=== PATIENT | male | born 1940 | race Caucasian/White ===

== ENCOUNTER → 2020-06-06 14:48 | Outpatient (BNVA) | payer MEDICARE, OTHER, SELFPAY | PROVIDERS: PCP Internal Medicine Endocrinology, Diabetes & Metabolism; Visit Provider Urology | DX: C61 Malignant neoplasm of prostate (principal); N52.01 Erectile dysfunction due to arterial insufficiency | CPT/HCPCS: Q3014 ==

== ENCOUNTER → 2021-06-12 12:35 | Outpatient (BNVA) | payer MEDICARE, OTHER, SELFPAY | PROVIDERS: PCP Internal Medicine Endocrinology, Diabetes & Metabolism; Visit Provider Urology | DX: N52.01 Erectile dysfunction due to arterial insufficiency (principal); C61 Malignant neoplasm of prostate | CPT/HCPCS: Q3014 ==

== ENCOUNTER → 2022-01-18 09:42 | Outpatient (REF) | payer MEDICARE, OTHER, SELFPAY ==
--- NOTE | ~2022-01-18 | NM_ITS ---
EXAMINATION: NM BONE SCAN OF THE WHOLE BODY CLINICAL INFORMATION: Malignant neoplasm of prostate. COMPARISON: No existing relevant imaging study available. TECHNIQUE: Multiple gamma scintillation camera images of the whole body were performed 3.25 hours following the intravenous administration of 31 mCi Tc-99m MDP. FINDINGS: In the head, no focal abnormalities present. In the thoracic cage and upper extremities, no suspicious focal abnormalities present. Mild increased radiotracer activities around both shoulder, sternoclavicular joints, both elbow and wrist likely represent arthritic changes. In the spine, linear abnormal increased radiotracer activities are present at lower thoracic spine, specifically at T8-T11. Mild increased radiotracer activities are also noted at L4 and L5. In the pelvis, no definite focal abnormality is identified. In the lower extremities, increased radiotracer activities are noted around both knee (left greater than right), and both mid-forefoot (left greater than right), may represent degenerative and/or posttraumatic changes. No other definite bony abnormalities are noted. The urinary bladder and faint visualization of both kidneys are noted. NM/NM bone scan whole body IMPRESSION: 1. Abnormal whole body bone scan showing multifocal increased radiotracer activities involving the lower thoracic and lower lumbar spine, may represent degenerative changes with or without superimposed compression fractures of the lower thoracic spine, of indeterminate etiology. Radiographic correlation is recommended. 2. No definite focal osseous lesion within the pelvis or ribs. 3. Abnormal increased radiotracer activities around both shoulder, sternoclavicular joints, both elbow and wrist and both knees and both mid-forefoot, may represent degenerative and/or posttraumatic changes.
== END ==
LOC: HO.NUCMED 09:42
PROVIDERS: Visit Provider Urology
DX: C61 Malignant neoplasm of prostate (principal)
CPT/HCPCS: 78306; A9503

== ENCOUNTER → 2022-01-29 15:36 | Outpatient (BNVA) | payer MEDICARE, OTHER, SELFPAY | PROVIDERS: PCP Internal Medicine Endocrinology, Diabetes & Metabolism; Visit Provider Urology | DX: C61 Malignant neoplasm of prostate (principal); N52.9 Male erectile dysfunction, unspecified | CPT/HCPCS: Q3014 ==

== ENCOUNTER 2022-06-03 12:37 | Outpatient (REF) | payer MEDICARE, OTHER, SELFPAY | END 2022-06-03 12:38 | disposition home or self-care (01) | LOC: HO.LAB 12:37 | PROVIDERS: PCP Internal Medicine Endocrinology, Diabetes & Metabolism; Visit Provider Urology | DX: Z12.5 Encounter for screening for malignant neoplasm of prostate (principal); N40.1 Benign prostatic hyperplasia with lower urinary tract symptoms; N13.8 Other obstructive and reflux uropathy; C61 Malignant neoplasm of prostate | CPT/HCPCS: 36415; 84153 ==

== ENCOUNTER → 2022-06-11 13:08 | Outpatient (BNVA) | payer MEDICARE, OTHER, SELFPAY | PROVIDERS: PCP Internal Medicine; Visit Provider Urology | DX: N52.01 Erectile dysfunction due to arterial insufficiency (principal); C61 Malignant neoplasm of prostate | CPT/HCPCS: 99212 ==

== ENCOUNTER → 2022-12-18 12:23 | Outpatient (BNVA) | payer MEDICARE, OTHER, SELFPAY | PROVIDERS: PCP Internal Medicine; Visit Provider Urology | DX: C61 Malignant neoplasm of prostate (principal); N52.01 Erectile dysfunction due to arterial insufficiency | CPT/HCPCS: Q3014 ==

== ENCOUNTER 2023-06-17 13:07 | Outpatient (REF) | payer MEDICARE, OTHER, SELFPAY ==
[2023-06-17 14:27] LABS: Prostate Specific Antigen 0.42 ng/mL (<0.05-4.0)
== END 2023-06-17 13:08 | disposition home or self-care (01) ==
LOC: HO.LAB 13:07
PROVIDERS: PCP Internal Medicine; Visit Provider Urology
DX: Z12.5 Encounter for screening for malignant neoplasm of prostate (principal); C61 Malignant neoplasm of prostate
CPT/HCPCS: 36415; 84153

== ENCOUNTER 2023-06-25 09:14 | Outpatient (AMB) | payer MEDICARE, OTHER, SELFPAY ==
--- NOTE | 2023-06-25 09:22 | MHC.OFFVIS ---
Intake Intake Visit Reasons: 6m/PSA(set) Intake Note: Patient is Present for Follow Up PSA Urology Medication: None Antibiotic Allergies: None Blood Thinners:None Allergies No Known Allergies Allergy (Verified 06/25/23 09:26) HPI HPI Comments History of Present Illness Details Anna is a pleasant male. He is a patient of Dr. Ames. He is seen for the following urologic conditions - prostate cancer - erectile dysfunction PSA remaining stable Minimal issues Continue with 6 monthly review - repeat bone scan Prostate cancer: Initial therapy external beam radiation 2009 short-term hormones low-grade cancer Prostate cancer was diagnosed 2008. The Devon grade is February 2009 Gl 3+3 08/04 cores PSA 4.1. Volume 78 cc TNM Classification of Malignant Tumours (TNM) T1c. Initial therapy included 2009 , External beam radiation with short term hormonal ablation Recent labs included a PSA (prostate-specific antigen) December 2014 0.9, Jan 2016 0.4, August 2016 0.5, Mar 2017 0.45 18 .4, 18 .4, 12/09 0.5, 06/10 0.4, 12/10 0.4, 06/11 0.4, 06/12 0.6. 06/13 0.4, 12/13 0.5, 06/14 0.4 Current symptoms include none - diagnosed with mild rectal proctitis at colonoscopy - 2017 - 2017. Imaging - 08/14 prostatomegaly with marker seeds, question of lucent lesion right iliac - 01/11 bone scan with generalized degenerative changes Next f/u in 6 months Erectile dysfunction: No longer using Tri Mix He presents today for for continued evaluation and management of erectile dysfunction. Symptoms have been present for/since years ago. Procedure(s)/Diagnosis causing dysfunction include radiation therapy. Current treament includes 04/08 Penile injection Tri-mix. Treatment side effects include none. Prior therapies include oral medications - ineffective. At this time he experiences erections are partial and insufficient for vaginal penetration, ANJEL 8-11 Moderate ED. Nocturnal erections do not occur. Currently they are in a stable relationship. [facility]LY [facility] Medical History HTN (hypertension) Hyperlipidemia Diabetes mellitus, type II Erectile dysfunction Prostate cancer Surgical History History of surgery Review of Systems Const Denies chills and Denies fever(s) Card Reports no additional complaints and Denies syncope Resp Denies cough GI Denies abdominal pain and Denies heartburn Reports as per HPI and Denies change in libido Neuro Denies syncope Psych Denies change in libido Endo Denies change in libido Physical Exam Const General: cooperative, healthy appearing, comfortable and no acute distress Orientation/consciousness: patient oriented x3 HEENT Face and sinus: Yes normal facial exam Mouth: moist mucous membranes Neck Neck: Yes normal visual inspection, Yes full ROM and Yes trachea midline Chest Chest palpation & inspection: normal inspection of the chest Resp Effort & Inspection: normal respiratory effort, able to speak in complete sentences and no respiratory distress GI Inspection: Yes normal to inspection Back/Spine/Pelvis Cervical Spine: normal cervical lordosis Thoracic/Lumbar Spine: thoracic and lumbar spine normal to inspection Skin General skin exam: no rashes or lesions noted Neuro General: patient oriented x3, gait normal, tone normal and moves all extremities Extrem General: Yes normal to inspection and Yes capillary refill normal Assessment & Plan Assessment & Plan (1) Erectile dysfunction due to arterial insufficiency: Code(s): N52.01 - Erectile dysfunction due to arterial insufficiency (2) Prostate cancer: Code(s): C61 - Malignant neoplasm of prostate Plan Six month follow-up Orders: Orders Prostate Specific Antigen 6 Months C61 - Malignant neoplasm of prostate NM bone scan whole body 6 Months C61 - Malignant neoplasm of prostate Patient Instructions: Imaging studies, laboratory and physical exam results were discussed and reviewed in detail. No major barriers to patient understanding were identified. An opportunity to ask questions regarding the treatment plan was provided. All questions were answered. The patient expressed understanding and agreement with the above treatment plan. The patient is aware they should contact our office by phone for worsening of their current condition or the appearance of new urologic symptoms. Compliance is encouraged with any medications and followup testing that is ordered. It is a privilege to participate in the urologic care of your patient. If you have any questions or concerns regarding treatment for the above conditions, or other urologic issues, please do not hesitate to contact me. The office telephone contact is [phone]. This note is constructed using voice recognition software. While every effort has been made to ensure accuracy signal fitter errors may have been included. Yours sincerely, Dr Rudy Mo MD, [facility] - Urology Providers of Expert, Compassionate Care for the Genitourinary System Coding Level of Care Code Est Pt Level 3 (83760) Diagnoses Erectile dysfunction due to arterial insufficiency N52.01 Prostate cancer C61
== END 2023-06-25 09:34 | disposition home or self-care (01) ==
PROVIDERS: PCP Internal Medicine; Visit Provider Urology
DX: N52.01 Erectile dysfunction due to arterial insufficiency (principal); C61 Malignant neoplasm of prostate
CPT/HCPCS: 99213

== ENCOUNTER → 2023-06-25 09:14 | Outpatient (BNVA) | payer MEDICARE, OTHER, SELFPAY | PROVIDERS: PCP Internal Medicine; Visit Provider Urology | DX: N52.01 Erectile dysfunction due to arterial insufficiency (principal); C61 Malignant neoplasm of prostate | CPT/HCPCS: 99212 ==

== ENCOUNTER → 2023-12-11 10:44 | Outpatient (REF) | payer MEDICARE, OTHER, SELFPAY ==
--- NOTE | ~2023-12-11 | NM_ITS ---
EXAMINATION: NM BONE SCAN OF THE WHOLE BODY CLINICAL INFORMATION: Malignant neoplasm of prostate. COMPARISON: The previous bone scan dated 01/18/2022 is available for comparison. TECHNIQUE: Multiple gamma scintillation camera images of the whole body were performed 2.5 hours following the intravenous administration of 31 mCi Tc-99m MDP. FINDINGS: In the head, no significant abnormalities are present. In the thoracic cage and upper extremities, there is mildly increased activity in the right sternoclavicular joint region. A few mild periarticular foci of increased activity are present in both hands and wrists, most prominently in the radial side of the hands bilaterally. In the spine, there is moderately increased activity in a horizontally linear foci involving 4 adjacent lower thoracic vertebral bodies, probably T8-T11. Mildly increased activity inferior to these in the right sides of T11 and T12 is also noted. A mild thoracolumbar scoliosis is present with lumbar convexity to the right. There is mildly increased activity in the left side of L4 left side of L4 and the right side of L5. In the pelvis, there is a focus of mildly increased activity present in the region of the coccyx. This is best visualized on the left and right posterior oblique spot views and overlaps the inferior aspect of the bladder on the posterior whole body image. In the lower extremities, foci of mildly increased activity are present in the right patella, the left tibial tuberosity and a slightly more intense focus in the proximal left foot. Additional faint focus of increased activity is present in the proximal right foot. No other definite bony abnormalities are noted. The urinary bladder and faint visualization of both kidneys are noted. Compared to the previous bone scan dated 01/18/2022, there has not been a significant change. AL/AL bone scan whole body IMPRESSION: 1. Stable abnormalities in the lower thoracic spine at T8-T11 continue to be most likely due to degenerative disease, possibly with superimposed compression fractures. Correlation with plain radiographs, if not previously performed, is strongly recommended. Metastatic disease at these sites cannot be entirely ruled out. 2. There is a small new abnormality in the coccyx. While this could be due to a recent fracture, a metastatic focus at this site cannot be entirely ruled out. This, as well as the thoracic spine abnormalities could be further characterized with MRI, performed without and with intravenous contrast, if clinically indicated. 3. A few additional mild nonspecific abnormalities are noted as described above and these are all likely arthritic or traumatic in etiology. None of these abnormalities is strongly suspicious for metastatic disease.
== END ==
LOC: HO.NUCMED 10:44
PROVIDERS: PCP Internal Medicine; Visit Provider Urology
DX: C61 Malignant neoplasm of prostate (principal)
CPT/HCPCS: 78306; A9503

== ENCOUNTER 2023-12-15 13:18 | Outpatient (REF) | payer MEDICARE, OTHER, SELFPAY ==
[2023-12-15 14:30] LABS: Prostate Specific Antigen 0.32 ng/mL (<0.05-4.0)
== END 2023-12-15 13:19 | disposition home or self-care (01) ==
LOC: HO.LAB 13:18
PROVIDERS: PCP Internal Medicine; Visit Provider Urology
DX: C61 Malignant neoplasm of prostate (principal); Z12.5 Encounter for screening for malignant neoplasm of prostate
CPT/HCPCS: 36415; 84153

== ENCOUNTER 2023-12-23 08:28 | Outpatient (AMB) | payer MEDICARE, OTHER, SELFPAY ==
--- NOTE | 2023-12-23 08:38 | MHC.OFFVIS ---
Intake Visit Reasons: 6m/PSA/bone scan(set) Intake Note: Patient is present for 6m/psa/bone scan Urology Medication:none Antibiotic Allergy:none Blood Thinner:none Net Software Architect Required: No Allergies No Known Allergies Allergy (Verified 12/23/23 09:01) HPI Comments Details: Anna is a pleasant male. He is a patient of Dr. Ames. He is seen for the following urologic conditions - prostate cancer - erectile dysfunction Stable PSA PSA 12/14 0.3 Reports back pain. Trial Celebrex Prostate cancer: Initial therapy external beam radiation 2009 short-term hormones low-grade cancer Prostate cancer was diagnosed 2008. The Maria E grade is February 2009 Gl 3+3 08/04 cores PSA 4.1. Volume 78 cc TNM Classification of Malignant Tumours (TNM) T1c. Initial therapy included 2009 , External beam radiation with short term hormonal ablation Recent labs included a PSA (prostate-specific antigen) December 2014 0.9, Jan 2016 0.4, August 2016 0.5, Mar 2017 0.45 18 .4, 18 .4, 12/09 0.5, 06/10 0.4, 12/10 0.4, 06/11 0.4, 06/12 0.6. 06/13 0.4, 12/13 0.5, 06/14 0.4 Current symptoms include none - diagnosed with mild rectal proctitis at colonoscopy - 2017 - 2017. Imaging - 08/14 prostatomegaly with marker seeds, question of lucent lesion right iliac - 01/11 bone scan with generalized degenerative changes - 12/14 bone scan generalized degenerative changes Follow in 12 months Erectile dysfunction: No longer using Tri Mix He presents today for for continued evaluation and management of erectile dysfunction. Symptoms have been present for/since years ago. Procedure(s)/Diagnosis causing dysfunction include radiation therapy. Current treament includes 04/08 Penile injection Tri-mix. Treatment side effects include none. Prior therapies include oral medications - ineffective. At this time he experiences erections are partial and insufficient for vaginal penetration, ANJEL 8-11 Moderate ED. Nocturnal erections do not occur. Currently they are in a stable relationship. FORMERLY [facility] Medical History HTN (hypertension) Hyperlipidemia Diabetes mellitus, type II Erectile dysfunction Prostate cancer Surgical History History of surgery Review of Systems Const Denies chills and Denies fever(s) Card Reports no additional complaints and Denies syncope Resp Denies cough GI Denies abdominal pain and Denies heartburn Reports as per HPI and Denies change in libido Neuro Denies syncope Psych Denies change in libido Endo Denies change in libido Physical Exam Const General: cooperative, healthy appearing, comfortable and no acute distress Orientation/consciousness: patient oriented x3 HEENT Face and sinus: Yes normal facial exam Mouth: moist mucous membranes Neck Neck: Yes normal visual inspection, Yes full ROM and Yes trachea midline Chest Chest palpation & inspection: normal inspection of the chest Resp Effort & Inspection: normal respiratory effort, able to speak in complete sentences and no respiratory distress GI Inspection: Yes normal to inspection Back/Spine/Pelvis Cervical Spine: normal cervical lordosis Thoracic/Lumbar Spine: thoracic and lumbar spine normal to inspection Skin General skin exam: no rashes or lesions noted Neuro General: patient oriented x3, gait normal, tone normal and moves all extremities Extrem General: Yes normal to inspection and Yes capillary refill normal Assessment & Plan Assessment & Plan (1) Erectile dysfunction due to arterial insufficiency: Code(s): N52.01 - Erectile dysfunction due to arterial insufficiency Category: Medical (2) Prostate cancer: Code(s): C61 - Malignant neoplasm of prostate Category: Medical Plan Celebrex for back pain Will contact PCP of effective Twelve month follow-up PSA Orders: Orders Prostate Specific Antigen 364 Days C61 - Malignant neoplasm of prostate Medications: New celecoxib 100 mg PO BEDTIME 30 caps 0RF 30 days C61 - Malignant neoplasm of prostate, M54.40 - Lumbago with sciatica, unspecified side, G89.29 - Other chronic pain, R39.12 - Poor urinary stream Patient Instructions: Imaging studies, laboratory and physical exam results were discussed and reviewed in detail. No major barriers to patient understanding were identified. An opportunity to ask questions regarding the treatment plan was provided. All questions were answered. The patient expressed understanding and agreement with the above treatment plan. The patient is aware they should contact our office by phone for worsening of their current condition or the appearance of new urologic symptoms. Compliance is encouraged with any medications and followup testing that is ordered. It is a privilege to participate in the urologic care of your patient. If you have any questions or concerns regarding treatment for the above conditions, or other urologic issues, please do not hesitate to contact me. The office telephone contact is [phone]. This note is constructed using voice recognition software. While every effort has been made to ensure accuracy charger errors may have been included. Yours sincerely, Dr Rudy Mo MD, [facility] - Urology Providers of Expert, Compassionate Care for the Genitourinary System Coding Level of Care Code Est Pt Level 3 (21809) Diagnoses Erectile dysfunction due to arterial insufficiency N52.01 Prostate cancer C61
== END 2023-12-23 09:49 | disposition home or self-care (01) ==
PROVIDERS: PCP Internal Medicine; Visit Provider Urology
DX: N52.01 Erectile dysfunction due to arterial insufficiency (principal); C61 Malignant neoplasm of prostate
CPT/HCPCS: 99213

== ENCOUNTER → 2023-12-23 08:28 | Outpatient (BNVA) | payer MEDICARE, OTHER, SELFPAY | PROVIDERS: PCP Internal Medicine; Visit Provider Urology | DX: N52.01 Erectile dysfunction due to arterial insufficiency (principal); C61 Malignant neoplasm of prostate | CPT/HCPCS: 99212 ==

== ENCOUNTER 2024-12-08 14:28 | Outpatient (REF) | payer MEDICARE, OTHER, SELFPAY ==
[2024-12-08 15:43] LABS: Prostate Specific Antigen 0.32 ng/mL (<0.05-4.0)
--- OUTSIDE RECORDS SUMMARY | 2024-12-08 16:37 | XMS_ITS | Continuity of Care Document ---
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 Referral None recorded . Procedures None recorded . Surgeries None recorded . Imaging None recorded . Medication Orders None recorded . Patient TargetsNo targets recorded. Patient Instructions Encounter Date Encounter Id Patient Instructions Last Modified By Organization Details Last Modified Time 12/07/2024 [id number] Patient to retur n in 9 weeks for foot care to reduce risk of complications associated with type 2 diabetes mellitus with peripheral neuropathy. jerskine Not available 12/07/2024 09:07:36 Reason for Referral None Reported. Problems Name Problem SNOMED Code Status Onset Date Resolution Date Notes Provider Name and Address Organization Details Recorded Time Microalbu minuria 887662417 Active 2020 LABS 2020 ACR 43.9 Shila encarnacion [facility] 14:04:27 Renal disorder due to type 2 diabetes mellitus 785180083 Active 2020 MICROALBUM INURIA Shila encarnacion [facility] 1 14:04:56 Mixed hyperlipi demia 881796323 Active 2008 Sandie Kim [facility] 5 07:24:54 Primary malignant neoplasm of prostate 54997847 [facility] 15:58:22 Essential hypertens ion 34842039 [facility] 07:24:54 Disorder of nail 09597710 Active 2006 Megan Hugo DPM [address] [place], [address] , [facility] 5 09:03:57 Type 2 diabetes mellitus without complicat ion 870640147 Active 2006 Megan Hugo DPM [address] [place], [address] , [facility] 6 12:21:09 Tinea pedis 4314624 Active 2006 Not Available [facility] 3 03:13:38 Acquired keratoder ma 497925837 Active 2006 Megan Hugo DPM [address] [place] [address], [phone] , [facility] 6 12:21:09 Low back pain 731609802 Active 2005 Not Available [facility] 3 03:13:38 Problem Notes None recorded. Procedures Surgical History Date Name Laterality Status Provider Name and Address Organization Details Recorded Time 0 Trimming of Nails/Lesions completed Megan Hugo DPM [address] [place], [address], [facility] 08/14/2009 10:37:20 9 Trimming of Nails/Lesions completed Megan Hugo DPM [address] [place], [phone], [facility] 06/12/2009 09:17:50 9 Trimming of Nails/Lesions completed Megan Hugo DPM [address] [place], [address], [facility] 04/14/2009 10:08:45 9 Trimming of Nails/Lesions completed Megan Hugo DPM [address] [place] [address], [place], [address], [facility] 02/14/2009 14:03:19 Imaging Results None recorded. Procedure Notes None recorded. Medical Equipment None Reported. Allergies No known drug allergies Medications Name Sig Start Date Stop Date Status Note LastModified by Organization Details LastModified Time atorvasta tin 20 mg tablet Take 1 tablet(s ) every day by oral route. 2023 active Not Available Not Available Not Avai lable ammonium lactate 12 % lotion APPLY ONE APPLICAT ION TOPICALL Y ONCE DAILY 10/05 completed Not Available Not Available Not Available aspirin 325 mg tablet Take 1 tablet every day by oral route. active Not Available Not Available No t Available urea 40 % topical cream Apply 1 applicat ion twice a day by topical route. 10/04 completed Not Available Not Available Not Available glipizide 10 mg tablet Take 1 tablet twice a day by oral route. 08/31 completed Not Available Not Available Not Available atenolol 25 mg tablet Take 1 tablet every day by oral route. 2023 active Not Available Not Available Not Avai lable Lantus U-100 Insulin 100 unit/mL subcutane ous solution Inject by subcutan eous route. 12/03 completed changed to Levemir due to insuranc e Not Available Not Available Not Available metformin 1,000 mg tablet Take 1 tablet twice a day by oral route. 08/31 completed Not Available Not Available Not Available ammonium lactate 12 % topical cream Apply 1 applicat ion every day by topical route. 2023 active Not Available Not Available Not Avai lable ketoconaz ole 2 % topical cream APPLY TO THE AFFECTED AREA(S) BY TOPICAL ROUTE ONCE DAILY 12/03 completed Not Available Not Available Not Available ramipril 10 mg capsule Take 1 capsule every day by oral route. 08/31 completed Not Available Not Available Not Available Novolog FlexPen U-100 Insulin aspart 100 unit/mL (3 mL) subcutane ous Inject by subcutan eous route. 02/16 completed Not Available Not Available Not Available bupropion HCl XL 300 mg 24 hr tablet, extended release Take 1 tablet every day by oral route. active Not Available Not Available No t Available ropinirol e 08/03 completed Not Available Not Available Not Available Lantus U-100 Insulin 100-18 units/da y active Not Available Not Available No t Available Novolog FlexPen U-100 Insulin 12/03 completed Not Available Not Available Not Available ramipril 10 mg tablet Take by oral route. 07/23 completed Not Available Not Available Not Available bupropion HBr 12/03 completed 300 mg Not Available Not Available Not Available Levemir FlexTouch U-100 Insulin 100 unit/mL (3 mL) subcutane ous pen Inject by subcutan eous route. active Not Available Not Available No t Available Trulicity 0.75 mg/0.5 mL subcutane ous pen injector Inject every week by subcutan eous route. active Not Available Not Available No t Available Vitals Date Recorded Body height Provider Name an d Address Organization Details Last Updated DateTime 12/07/2024 177.8 cm Adry Corado [facility] 12/07/2024 08:40:11 Social History Question Answer Notes LastModified by Organizat ion Details LastModified Time Tobacco Smoking Status Former Smoker quit 1982 Adry Corado [facility] 10/04/2020 09:15:30 When Did You Quit Smoking? 17+yearssin celastcikenisha ette [email or web address] Information not available 03/14/2021 What Was The Date Of Your Most Recent Tobacco Screening? 08/31/2021 Information not available 08/31/2021 Sex: Male Functional Status Question Answer Note LastModified by Organization D etails LastModified Time Do you or have you ever used any other forms of tobacco or nicotine? No [email or web address] Information not available 03/14/2021 Mental Status None recorded. Family History Nothing Reported. Medical History No medical history recorded. Past Encounters Encounter ID Performer Location Encounter Start Date Encounter Closed Date Diagnosis/Indication Diagnosis SNOMED-CT Code Diagnosis ICD10 Code Diagnosis Note [id number] Bonnie Reddy MD Podiatry, [address] [address] 12/07/2024 08:38:46 12/07/2024 09:20:40 Disorder of nervous system due to type 2 diabetes mellitus 538065156 E11.49 Hypertrophy of nail 3065 4002 L60.2 Foot callus 738560894 L8 4 Health Concerns Section Related Observation LastModified by Organization Detai ls LastModified Time None Recorded Concern Status LastModified by Organization Details LastModified Time None Recorded Payers Encounter Date Sequence Insurance Name Policy Number Policy [place] Covered Member ID [place] Member ID Guarantor Name 12/07/2024 2 [facility] [id number] Margot Torres [id number] Kunal Torres 12/07/2024 1 MEDICARE B-NM: [facility] [employer] Clive Torres [id number] L Kunal Torres Notes Date Note Type Note Provider Name and Address Organization Details Recorded Time 12/07/2024 text/html Patient with typ e 2 diabetes mellitus with peripheral neuropathy returns to the office for evaluation and foot care. Patient complains of thick toenails with return of calluses he can't care for himself. Patient has no complaints of open wound or drainage. Patient seen by Adryan Stapleton MD on 11/16/24. Megan Hugo DPM [address] [place] [address], [phone], [facility] 12/07/2024 09:09:29
== END 2024-12-08 14:29 | disposition home or self-care (01) ==
LOC: HO.LAB 14:28
PROVIDERS: PCP Internal Medicine; Visit Provider Urology
DX: C61 Malignant neoplasm of prostate (principal); Z12.5 Encounter for screening for malignant neoplasm of prostate
CPT/HCPCS: 36415; 84153

== ENCOUNTER 2024-12-21 08:30 | Outpatient (AMB) | payer MEDICARE, OTHER, SELFPAY ==
--- OUTSIDE RECORDS SUMMARY | 2024-12-21 08:38 | XMS_ITS | Data Portability ---
Author Organization [facility], [facility] Address [address] [place] [address] Care Team Providers Care Physical Science Professor Name Role Phone MEGAN STARK Public Relations Supervisor ADRYAN STAPLETON Primary Care Provider [phone] Assessment Encounter Date Assessment Date Assessment LastModified by Organization Details LastModified Time 02/17/2024 02/17/2024 type 2 diabetes mellitus with peripheral neuropathy, Pain left ankle jerskine Not available 02/17/2024 09:03:09 04/27/2024 04/27/2024 type 2 diabetes mellitus with peripheral neuropathy, onychauxis bilateral hallux, hyperkeratotic lesions jerskine Not available 04/27/2024 09:00:17 08/03/2024 08/03/2024 type 2 diabetes mellitus with peripheral neuropathy, onychauxis bilateral hallux, hyperkeratotic lesions jerskine Not available 08/03/2024 08:56:26 10/05/2024 10/05/2024 type 2 diabetes mellitus with peripheral neuropathy, onychauxis bilateral hallux, hyperkeratotic lesions jerskine Not available 10/05/2024 08:58:33 12/07/2024 12/07/2024 type 2 diabetes mellitus with peripheral neuropathy, onychauxis bilateral hallux, hyperkeratotic lesions jerskine Not available 12/07/2024 09:07:36 Plan of Treatment Reminders Order Date Submit Date Provider Last Modified By Organization Details Last Modified Time Details Appointments Routine Foot Care 15 2024 09:00A Fiona Stark DPM Not available Not available Not available Lab None recorded. Referral None recorded. Procedures None recorded. Surgeries None recorded. Imaging None recorded. Medication Orders ammonium lactate 12 % topical cream 2023 024 [id number], [address] [facility], [place], [address], 04/27/2024 09:00:35 Patient TargetsNo targets recorded. Patient Instructions Encounter Date Encounter Id Patient Instructions Last Modified By Organization Details Last Modified Time 02/17/2024 [id number] Dispensed order for x-ray evaluation left ankle. Will contact patient regarding results. jerskine Not available 02/17/2024 09:03:39 04/27/2024 [id number] Dispensed update d prescription for ammonium lactate cream to be applied daily. Patient to return in 9 weeks for foot care to reduce risk of complications associated with type 2 diabetes mellitus with peripheral neuropathy. jerskine Not available 04/27/2024 09:01:00 08/03/2024 [id number] Patient to retur n in 9 weeks for foot care to reduce risk of complications associated with type 2 diabetes mellitus with peripheral neuropathy. jerskine Not available 08/03/2024 08:58:44 10/05/2024 [id number] Patient to retur n in 9 weeks for foot care to reduce risk of complications associated with type 2 diabetes mellitus with peripheral neuropathy. jerskine Not available 10/05/2024 08:58:33 12/07/2024 [id number] Patient to retur n in 9 weeks for foot care to reduce risk of complications associated with type 2 diabetes mellitus with peripheral neuropathy. jerskine Not available 12/07/2024 09:07:36 Reason for Referral None Reported. Results Created Date Observation Date Name Description Value Unit Range Abnormal Flag Note LastModifiedBy Organization Detail LastModifiedTime 02/17/20 24 02/17/2024 XR, ankle CLINIC AL HISTOR Y: Left ankle pain. TECHNI QUE: 2 views of the left ankle obtain ed. COMPAR LE: None. FINDIN GS: No acute fractu re.. There is mild narrow ing of the tibiot alar joint. . There is a modera te the large planta r spur. There is small vessel athero sclero sis. IMPRES EZIO: Mild DJD left tibiot alar joint. Other findin gs as above. Michel patrick Physic marta: Servando Barnes [email or web address] [facility] [address], [place], [id number], 02/20/2024 10:22:28 Result Notes Documentation Provider Name and Address Organization Details Recorded Time Xr, Ankle : CLINICAL HISTORY: Left ankle pain. TECHNIQUE: 2 views of the left ankle obtained. COMPARISON: None. FINDINGS: No acute fracture.. There is mild narrowing of the tibiotalar joint.. There is a moderate the large plantar spur. There is small vessel atherosclerosis. IMPRESSION: Mild DJD left tibiotalar joint. Other findings as above. Reading Physician: Amy Corado [facility] 02/20/2024 10:22:28 Problems Name Problem SNOMED Code Status Onset Date Resolution Date Notes Provider Name and Address Organization Details Recorded Time Microalbu minuria 443617768 Active 2020 LABS 2020 ACR 43.9 Shila Cobb [facility] 1 14:04:27 Renal disorder due to type 2 diabetes mellitus 022235440 Active 2020 MICROALBUM INURIA Shila Cobb [facility] 1 14:04:56 Mixed hyperlipi demia 715152687 Active 2008 Sandieadelso Kim [facility] 5 07:24:54 Primary malignant neoplasm of prostate 58758792 Active 2008 Alma Miles [facility] 6 15:58:22 Essential hypertens ion 44993860 Active 2008 Sandie Kim [facility] 5 07:24:54 Disorder of nail 04554173 Active 2006 Megan Stark DPM [address] [place] [address], [phone] , [facility] 5 09:03:57 Type 2 diabetes mellitus without complicat ion 663572054 Active 2006 Megan Stark DPM [address] [place] [address], [phone] , [facility] 6 12:21:09 Tinea pedis 2854731 Active 2006 Not Available [facility] 3 03:13:38 Acquired keratoder pa 274386901 Active 2006 Megan Stark DPM [address] [place] [address], [phone] , [facility] 6 12:21:09 Low back pain 668248352 Active 2005 Not Available [facility] 3 03:13:38 Problem Notes None recorded. Procedures Surgical History Date Name Laterality Status Provider Name and Address Organization Details Recorded Time 0 Trimming of Nails/Lesions completed Megan Stark DPM [address] [place] [address], [phone], [facility] 08/14/2009 10:37:20 9 Trimming of Nails/Lesions completed Megan Stark DPM [address] [place] [address], [phone], [facility] 06/12/2009 09:17:50 9 Trimming of Nails/Lesions completed Megan Stark DPM [address] [place] [address], [phone], [facility] 04/14/2009 10:08:45 9 Trimming of Nails/Lesions completed Megan Stark DPM [address] [place] [address], [phone], [facility] 02/14/2009 14:03:19 Imaging Results None recorded. Procedure [...] d Address Organization Details Last Updated DateTime 08/03/2024 177.8 cm Adry Corado [facility] 08/03/2024 08:37:34 Date Recorded Body height Provider Name an d Address Organization Details Last Updated DateTime 10/05/2024 177.8 cm Adry Corado [facility] 10/05/2024 08:33:49 Date Recorded Body height Provider Name an d Address Organization Details Last Updated DateTime 12/07/2024 177.8 cm Adry Corado [facility] 12/07/2024 08:40:11 Date Recorded Body height Heart rate Systolic blood pressure Diastolic blood pressure Provider Name and Address Organization Details Last Updated DateTime 02/17/2024 177.8 cm 65 /min 132 mm[Hg] 65 mm[Hg] Adry Corado [facility] 02/17/2024 08:46:00 Date Recorded Body height Provider Name an d Address Organization Details Last Updated DateTime 04/27/2024 177.8 cm Adry Corado [facility] 04/27/2024 08:36:03 Social History Question Answer Notes LastModified by Organizat ion Details LastModified Time Tobacco Smoking Status Former Smoker quit 1982 Adry Corado [facility] 10/04/2020 09:15:30 When Did You Quit Smoking? 17+yearssin celastcigar ette [email or web address] Information not available 03/14/2021 What Was The Date Of Your Most Recent Tobacco Screening? 08/31/2021 [email or web address] Information not available 08/31/2021 Sex: Male Functional Status Question Answer Note LastModified by Organization D etails LastModified Time Do you or have you ever used any other forms of tobacco or nicotine? No [email or web address] Information not available 03/14/2021 Mental Status None recorded. Family History Nothing Reported. Medical History No medical history recorded. Past Encounters Encounter ID Performer Location Encounter Start Date Encounter Closed Date Diagnosis/Indication Diagnosis SNOMED-CT Code Diagnosis ICD10 Code Diagnosis Note [id number] [facility], [address] [address] 09/06/2005 09:53:15 09/06/2005 09:53:37 [id number] Tara Schroeder, PT Physical Therapy, [address] [address] 05/06/2006 08:16:10 05/06/2006 08:46:18 [id number] Tara Schroeder, PT Physical Therapy, [facility] [place] [address] 05/09/2006 08:57:30 05/09/2006 08:57:41 [id number] Tara Schroeder, PT Physical Therapy, [facility] [place] [address] 05/19/2006 08:01:00 05/19/2006 08:01:24 [id number] Tara Schroeder, PT Physical Therapy, [facility] [place] [address] 05/26/2006 08:02:04 05/26/2006 08:03:11 [id number] [facility], [facility] [place] [address] 06/20/2006 14:21:22 06/20/2006 16:29:06 [id number] Megan Stark DPM Podiatry, [facility] [place] [address] 04/13/2007 09:18:54 04/13/2007 17:03:10 [id number] Megan Stark DPM Podiatry, [facility] [place] [address] 06/08/2007 10:05:01 06/09/2007 08:43:26 [id number] Megan Stark DPM Podiatry, [facility] [place] [address] 08/10/2007 08:59:06 08/11/2007 07:42:16 [id number] Megan Stark DPM Podiatry, [facility] [place] [address] 10/09/2007 09:50:29 10/16/2007 09:39:23 [id number] Megan Stark DPM Podiatry, [facility] [place] [address] 12/11/2007 08:45:33 12/14/2007 11:07:25 [id number] [facility], [facility] [place] [address] 01/18/2008 15:30:33 01/18/2008 17:09:19 [id number] Megna Stark DPM Podiatry, [facility] [place] [address] 01/26/2008 10:12:54 01/26/2008 16:14:10 [id number] Megan Stark DPM Podiatry, [facility] [place] [address] 03/28/2008 10:06:52 03/28/2008 17:44:11 [id number] Megan Stark DPM Podiatry, [facility] [place] [address] 05/23/2008 09:04:35 05/24/2008 11:56:54 [id number] Megan Huffman i, PT Physical Therapy, [address] [place] [address] 05/25/2008 12:44:01 05/25/2008 12:49:28 [id number] Megan Huffman i, PT Physical Therapy, [facility] [place] [address] 05/25/2008 11:50:31 05/25/2008 11:52:38 [id number] Megan Huffman i, PT Physical Therapy, [address] [place] [address] 05/31/2008 09:55:17 05/31/2008 09:56:18 [id number] Megan Stark DPM Podiatry, [address] [place] [address] 07/25/2008 08:55:14 07/25/2008 17:31:58 [id number] [facility], [address] [place] [address] 02/14/2009 13:31:59 05/04/2009 12:39:48 [id number] Megan Stark DPM Podiatry, [address] [place] [address] 04/14/2009 09:18:58 05/04/2009 13:40:23 [id number] [facility], [facility] [place] [address] 07/18/2008 13:50:33 07/18/2008 16:46:13 [id number] DALE UgarteM Podiatry, [facility] [place] [address] 12/09/2008 12:24:41 12/09/2008 17:05:38 [id number] [facility], [address] [address] 12/21/2008 14:20:10 12/21/2008 16:53:02 [id number] [facility] - [address] [place] [address] 02/15/2009 07:01:13 02/15/2009 07:01:17 [id number] [facility] - [address] [address] 04/14/2009 10:09:49 04/14/2009 10:10:11 [id number] [facility] Podiatry, [address] [address] 06/12/2009 09:00:36 06/28/2009 10:46:31 [id number] [facility], [address] [address] 08/14/2009 09:01:49 08/14/2009 13:59:50 [id number] [facility], [address] [address] 10/16/2009 09:33:52 10/25/2009 15:12:41 [id number] [facility], [address] [address] 01/01/2010 09:56:55 01/01/2010 16:23:30 [id number] [facility], [address] [address] 03/23/2010 09:41:27 03/23/2010 10:21:15 [id number] [facility], [address] [address] 08/06/2010 10:04:04 08/06/2010 12:41:26 [id number] [facility], [address] [address] 1 10/08/2010 10:01:11 10/08/2010 12:48:40 [id number] [facility], [address] [address] 12/10/2010 09:27:37 12/10/2010 09:44:55 [id number] [facility], [address] [place] [address] 02/11/2011 09:41:31 02/11/2011 09:54:05 [id number] [facility], [address] [place] [address] 04/19/2011 09:05:55 04/23/2011 15:43:13 [id number] [facility], [address] [place] [address] 06/21/2011 12:26:30 06/21/2011 13:33:20 [id number] [facility], [address] [place] [address] 08/23/2011 12:35:53 09/05/2011 08:15:04 [id number] [facility], [address] [address] 10/25/2011 12:35:37 10/25/2011 13:14:03 [id number] [facility], [address] [address] 01/20/2012 10:02:51 01/20/2012 10:36:18 [id number] [facility], [address] [address] 03/20/2012 11:16:42 03/23/2012 15:20:46 [id number] [facility], [address] [address] 1 05/22/2012 11:24:16 05/22/2012 12:02:46 [id number] [facility], [address] [address] 07/24/2012 09:41:17 07/24/2012 10:04:59 [id number] [facility] Pod[facility], [address] [address] 1 09/25/2012 09:35:46 09/25/2012 11:27:54 [id number] [facility], [address] [address] 1 11/27/2012 11:58:24 11/27/2012 12:30:17 [id number] Megan Stark DPM Podiatry, [address] [address] 05/10/2013 11:25:52 05/10/2013 12:19:26 Type 2 diabetes mellitus without complication 318544578 Disorder of nail 47624346 Acquired keratoderma 207165971 [id number] Megan Stark DPM Podiatry, [address] [address] 08/02/2013 11:52:19 08/02/2013 12:40:16 Type 2 diabetes mellitus without complication 316376006 Disorder of nail 78104949 Acquired keratoderma 229527280 [id number] Megan Stark DPM Podiatry, [address] [address] 10/04/2013 10:10:37 10/04/2013 11:00:00 Type 2 diabetes mellitus without complication 186969387 Disorder of nail 99705812 Acquired keratoderma 461562824 [id number] Megan Stark DPM Podiatry, [address] [address] 12/27/2013 09:17:23 12/27/2013 09:50:42 Type 2 diabetes mellitus without complication 828483651 Disorder of nail 51865069 Acquired keratoderma 980543429 [id number] Megan Stark DPM Podiatry, [address] [address] 1 04/11/2014 12:00:05 04/12/2014 11:00:06 Type 2 diabetes mellitus without complication 669727648 Disorder of nail 78604060 Acquired keratoderma 030846158 Pain in lower limb 69447112 [id number] Megan Stark DPM Podiatry, [address] [address] 1 05/13/2014 10:12:47 05/13/2014 10:45:34 Type 2 diabetes mellitus without complication 958329694 Pain in lower limb 09448248 [id number] Megan Stark DPM Podiatry, [address] [address] 1 06/10/2014 09:15:27 06/10/2014 10:03:21 Type 2 diabetes mellitus without complication 346171240 Pain in lower limb 62916471 [id number] Megan Stark DPM Podiatry, [address] [address] 1 07/04/2014 09:22:52 07/04/2014 09:59:19 Type 2 diabetes mellitus without complication 172998345 Disorder of nail 10020725 Acquired keratoderma 268376083 Pain in lower limb 13491364 [id number] Megan Stark DPM Podiatry, [address] [address] 09/05/2014 09:24:41 09/05/2014 09:43:40 Type 2 diabetes mellitus without complication 631454440 Acquired keratoderma 160484538 [id number] Megan Stark DPM Podiatry, [address] [address] 1 11/07/2014 09:22:31 11/07/2014 09:47:53 Type 2 diabetes mellitus without complication 729410536 Disorder of nail 41945172 Acquired keratoderma 561393296 [id number] Megan Stark DPM Podiatry, [address] [address] 1 01/09/2015 08:33:59 01/09/2015 08:55:23 Type 2 diabetes mellitus without complication 739432969 Disorder of nail 82360664 Acquired keratoderma 819765494 [id number] Megan Stark DPM Podiatry, [address] [address] 03/13/2015 08:43:43 03/13/2015 09:03:38 Type 2 diabetes mellitus without complication 606370513 Disorder of nail 07213022 Acquired keratoderma 426318856 [id number] Megan Stark DPM Podiatry, [address] [address] 1 09/25/2015 11:49:20 09/25/2015 12:20:04 Type 2 diabetes mellitus without complication 378289918 E11.9 Hypertrophy of nail 3065 4002 L60.2 Acquired keratoderma 400 416514 L85.1 [id number] Megan Stark DPM Podiatry, [address] [address] 1 12/22/2015 09:44:27 12/22/2015 10:07:16 Type 2 diabetes mellitus without complication 749492545 E11.9 Hypertrophy of nail 3065 4002 L60.2 Acquired keratoderma 400 575201 L85.1 [id number] Megan Stark DPM Podiatry, [address] [address] 1 03/04/2016 08:38:03 03/04/2016 09:01:29 Type 2 diabetes mellitus without complication 119547930 E11.9 Hypertrophy of nail 3065 4002 L60.2 Acquired keratoderma 400 630335 L85.1 [id number] Megan Stark DPM Podiatry, [address] [address] 1 05/06/2016 09:50:39 05/06/2016 10:13:41 Type 2 diabetes mellitus without complication 424165064 E11.9 Hypertrophy of nail 3065 4002 L60.2 Acquired keratoderma 400 702149 L85.1 [id number] Megan Stark DPM Podiatry, [address] [address] 1 07/08/2016 09:08:18 07/08/2016 09:38:07 Type 2 diabetes mellitus without complication 994415210 E11.9 Hypertrophy of nail 3065 4002 L60.2 Acquired keratoderma 400 404049 L85.1 [id number] Megan Stark DPM Podiatry, [address] [address] 1 09/09/2016 09:03:44 09/09/2016 09:58:01 Type 2 diabetes mellitus without complication 459977500 E11.9 Hypertrophy of nail 3065 4002 L60.2 Acquired keratoderma 400 732307 L85.1 [id number] Megan Stark DPM Podiatry, [address] [address] 1 11/11/2016 08:56:33 11/11/2016 09:38:28 Type 2 diabetes mellitus without complication 612567639 E11.9 Hypertrophy of nail 3065 4002 L60.2 Acquired keratoderma 400 734573 L85.1 Foot pain 33052167 M79.6 72 [id number] Megan Stark DPM Podiatry, [address] [address] 1 01/13/2017 10:40:25 01/13/2017 11:17:37 Type 2 diabetes mellitus without complication 102459024 E11.9 Hypertrophy of nail 3065 4002 L60.2 Acquired keratoderma 400 660895 L85.1 [id number] Megan Stark DPM Podiatry, [address] [address] 1 03/10/2017 08:41:27 03/10/2017 09:07:49 Type 2 diabetes mellitus without complication 645002308 E11.9 Hypertrophy of nail 3065 4002 L60.2 Acquired keratoderma 400 660963 L85.1 [id number] Megan Stark DPM Podiatry, [address] [address] 1 05/12/2017 11:33:06 05/12/2017 12:19:37 Type 2 diabetes mellitus without complication 889526704 E11.9 Hypertrophy of nail 3065 4002 L60.2 Acquired keratoderma 400 881911 L85.1 [id number] Megan Stark DPM Podiatry, [address] [address] 1 07/28/2017 09:22:23 07/28/2017 10:07:00 Type 2 diabetes mellitus without complication 811439266 E11.9 Hypertrophy of nail 3065 4002 L60.2 Acquired keratoderma 400 629807 L85.1 [id number] Megan Stark DPM Podiatry, [address] [address] 1 10/20/2017 08:48:30 10/20/2017 09:30:09 Type 2 diabetes mellitus without complication 824478159 E11.9 Hypertrophy of nail 3065 4002 L60.2 Acquired keratoderma 400 462470 L85.1 [id number] Megan Stark DPM Podiatry, [address] [address] 1 12/19/2017 08:38:13 12/19/2017 09:05:55 Type 2 diabetes mellitus without complication 075893249 E11.9 Hypertrophy of nail 3065 4002 L60.2 Acquired keratoderma 400 168583 L85.1 [id number] Megan Stark DPM Podiatry, [address] [address] 1 02/20/2018 10:02:13 02/20/2018 11:08:35 Type 2 diabetes mellitus without complication 814568136 E11.9 Hypertrophy of nail 3065 4002 L60.2 Acquired keratoderma 400 362152 L85.1 [id number] Megan Stark DPM Podiatry, [address] [address] 1 2018 08:36:22 04/28/2018 09:21:27 Type 2 diabetes mellitus without complication 691852285 E11.9 Hypertrophy of nail 3065 4002 L60.2 Acquired keratoderma 400 439123 L85.1 [id number] Megan Stark DPM Podiatry, [address] [address] 1 06/12/2018 12:01:47 06/12/2018 12:55:00 Type 2 diabetes mellitus without complication 988380200 E11.9 Hypertrophy of nail 3065 4002 L60.2 Acquired keratoderma 400 135960 L85.1 [id number] Megan Stark DPM Podiatry, [address] [address] 1 08/14/2018 09:35:31 08/14/2018 10:11:01 Type 2 diabetes mellitus without complication 987512447 E11.9 Hypertrophy of nail 3065 4002 L60.2 Acquired keratoderma 400 835397 L85.1 [id number] Megan Stark DPM Podiatry, [address] [address] 1 10/16/2018 08:52:58 10/16/2018 15:25:32 Type 2 diabetes mellitus without complication 641644596 E11.9 Hypertrophy of nail 3065 4002 L60.2 Pain in toe 116035028 M7 9.674 M79.772 [id number] Megan Stark DPM Podiatry, [address] [address] 1 12/18/2018 08:50:10 12/18/2018 09:23:28 Disorder of nervous system due to type 2 diabetes mellitus 374026762 E11.49 Hypertrophy of nail 3065 4002 L60.2 Foot callus 434107920 L8 4 [id number] Megan Stark DPM Podiatry, [address] [address] 1 02/26/2019 09:00:40 02/26/2019 09:38:49 Disorder of nervous system due to type 2 diabetes mellitus 254455566 E11.49 Hypertrophy of nail 3065 4002 L60.2 Foot callus 632489617 L8 4 [id number] Megan Stark DPM Podiatry, [address] [address] 1 05/03/2019 08:50:16 05/03/2019 09:37:52 Disorder of nervous system due to type 2 diabetes mellitus 308030022 E11.49 Hypertrophy of nail 3065 4002 L60.2 Foot callus 235375106 L8 4 [id number] Megan Stark DPM Podiatry, [address] [address] 07/05/2019 08:40:16 07/05/2019 09:20:59 Disorder of nervous system due to type 2 diabetes mellitus 856931480 E11.49 Hypertrophy of nail 3065 4002 L60.2 Foot callus 078263717 L8 4 [id number] Megan Stark DPM Podiatry, [address] [address] 1 09/06/2019 08:39:14 09/06/2019 09:11:36 Disorder of nervous system due to type 2 diabetes mellitus 427557057 E11.49 Hypertrophy of nail 3065 4002 L60.2 Foot callus 840005642 L8 4 [id number] Megan Stark DPM Podiatry, [address] [address] 10/04/2020 08:57:51 10/04/2020 09:57:18 Disorder of nervous system due to type 2 diabetes mellitus 822136991 E11.49 Hypertrophy of nail 3065 4002 L60.2 Foot callus 243786138 L8 4 [id number] Megan Stark DPM Podiatry, [address] [address] 12/20/2020 09:17:17 12/20/2020 09:50:06 Disorder of nervous system due to type 2 diabetes mellitus 513182685 E11.49 Hypertrophy of nail 3065 4002 L60.2 Foot callus 346802747 L8 4 [id number] Jeffrey Hoyos MD Podiatry, [address] [address] 03/14/2021 09:09:19 03/14/2021 10:46:39 Disorder of nervous system due to type 2 diabetes mellitus 273755331 E11.49 Hypertrophy of nail 3065 4002 L60.2 Foot callus 548317676 L8 4 [id number] Jeffrey Hoyos MD Podiatry, [address] [address] 1 06/29/2021 09:01:08 06/29/2021 09:56:58 Disorder of nervous system due to type 2 diabetes mellitus 241018182 E11.49 Hypertrophy of nail 3065 4002 L60.2 Foot callus 223900572 L8 4 [id number] Bonnie Reddy MD Podiatry, [address] [address] 1 08/31/2021 08:45:07 08/31/2021 09:06:59 Disorder of nervous system due to type 2 diabetes mellitus 171171961 E11.49 Hypertrophy of nail 3065 4002 L60.2 Foot callus 153752861 L8 4 [id number] Bonnie Reddy MD Podiatry, [address] [address] 1 12/03/2021 11:17:31 12/05/2021 15:28:57 Disorder of nervous system due to type 2 diabetes mellitus 363748996 E11.49 Hypertrophy of nail 3065 4002 L60.2 Foot callus 508950715 L8 4 [id number] Bonnie Reddy MD Podiatry, [address] [address] 1 02/15/2022 11:37:01 02/15/2022 12:15:49 Disorder of nervous system due to type 2 diabetes mellitus 487469477 E11.49 Hypertrophy of nail 3065 4002 L60.2 Foot callus 663469132 L8 4 [id number] Bonnie Reddy MD Podiatry, [address] [address] 1 05/24/2022 09:25:04 05/24/2022 09:52:07 Disorder of nervous system due to type 2 diabetes mellitus 375076683 E11.49 Thickening of skin 64138 006 L85.1 [id number] Bonnie Reddy MD Podiatry, [address] [address] 1 08/23/2022 09:22:19 08/23/2022 09:51:30 Disorder of nervous system due to type 2 diabetes mellitus 072677970 E11.49 Hypertrophy of nail 3065 4002 L60.2 Foot callus 401035290 L8 4 [id number] Bonnie Reddy MD Podiatry, [address] [id number] 11/01/2022 08:31:51 11/01/2022 13:56:17 Disorder of nervous system due to type 2 diabetes mellitus [id number] E11.49 Hypertrophy of nail 3065 4002 L60.2 Foot callus [id number] L8 4 [id number] Bonnie Reddy MD Podiatry, [address] [address] 02/12/2023 15:14:42 02/12/2023 15:44:20 Increased blood pressure [id number] R03.0 Your blood pressure was elevated today (higher than 140/90). Please follow up by scheduling an appointmen t in the Blood Pressure clinic within 2 weeks. Disorder o f nervous system due to type 2 diabetes mellitus [id number] E11.49 Hypertrophy of nail 3065 4002 L60.2 Foot callus [id number] L8 4 [id number] Bonnie Reddy MD Podiatry, [address] [address] 04/16/2023 15:06:36 04/16/2023 16:19:58 Increased blood pressure 66913516 R03.0 Your blood pressure was elevated today (higher than 140/90). Please follow up by scheduling an appointmen t in the Blood Pressure clinic within 2 weeks. Disorder o f nervous system due to type 2 diabetes mellitus [id number] E11.49 Hypertrophy of nail 3065 4002 L60.2 Foot callus [id number] L8 4 [id number] Bonnie Reddy MD Podiatry, [address] [address] 07/23/2023 08:50:36 07/23/2023 11:24:28 Increased blood pressure [id number] R03.0 Your blood pressure was elevated today (higher than 140/90). Please follow up by scheduling an appointmen t in the Blood Pressure clinic within 2 weeks. Disorder o f nervous system due to type 2 diabetes mellitus [id number] E11.49 Hypertrophy of nail 3065 4002 L60.2 Foot callus [id number] L8 4 [id number] Bonnie Reddy MD Podiatry, [address] [address] 11/25/2023 08:30:41 11/25/2023 09:37:44 Increased blood pressure 38951550 R03.0 Your blood pressure was elevated today (higher than 140/90). Please follow up by scheduling an appointmen t in the Blood Pressure clinic within 2 weeks. Disorder o f nervous system due to type 2 diabetes mellitus [id number] E11.49 Hypertrophy of nail 3065 4002 L60.2 Foot callus [id number] L8 4 [id number] Bonnie Reddy MD Podiatry, [address] [address] 02/17/2024 08:31:45 02/17/2024 09:40:11 Disorder of nervous system due to type 2 diabetes mellitus 150727558 E11.49 Pain of le ft ankle joint [id number] M25.572 [id number] Bonnie Reddy MD Podiatry, [address] [address] 04/27/2024 08:27:00 04/27/2024 09:16:09 Disorder of nervous system due to type 2 diabetes mellitus [id number] E11.49 Hypertrophy of nail 3065 4002 L60.2 Foot callus [id number] L8 4 [id number] Bonnie Reddy MD Podiatry, [address] [address] 08/03/2024 08:36:00 08/03/2024 08:59:53 Disorder of nervous system due to type 2 diabetes mellitus 394164199 E11.49 Hypertrophy of nail 3065 4002 L60.2 Foot callus [id number] L8 4 [id number] Bonnie Reddy MD Podiatry, [address] [phone] 10/05/2024 08:30:54 10/05/2024 09:03:25 Disorder of nervous system due to type 2 diabetes mellitus 888014200 E11.49 Hypertrophy of nail 3065 4002 L60.2 Foot callus [id number] L8 4 [id number] Bonnie Reddy MD Podiatry, [address] [address] 12/07/2024 08:38:46 12/07/2024 09:20:40 Disorder of nervous system due to type 2 diabetes mellitus 388297753 E11.49 Hypertrophy of nail 3065 4002 L60.2 Foot callus 881615190 L8 4 Health Concerns Section Related Observation LastModified by Organization Detai ls LastModified Time None Recorded Concern Status LastModified by Organization Details LastModified Time None Recorded Advance Directives Directive None Recorded Payers Insurance Date Sequence Insurance Name Policy Number Policy [place] Covered Member ID [place] Member ID Guarantor Name 05/05/2006 1 *SELF PAY* Bam Torres 12/04/2024 2 [facility] - [facility] [id number] Margot Torres [id number] Bam Kunal Torres 11/24/2024 1 MEDICARE [place]: [facility] [employer] Clive Torres [id number] Bam Torres Notes Date Note Type Note Provider Name and Address Organization Details Recorded Time 02/17/2024 text/html 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 Patient states he would occasionally experience discomfort in his ankle especially at night, but the pain has been becoming more consistent. Patient has not noticed swelling or discoloration. 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 Patient complains of thick toenails as well as calluses he can't care for himself. Patient has no complaints of open wound or drainage. Patient seen by Adryan Stapleton MD on 04/07/24. Megan Stark DPM [address] [place], [phone], [facility] 04/27/2024 09:01:47 08/03/2024 text/html Patient with typ e 2 diabetes mellitus with peripheral neuropathy returns to the office for evaluation and foot care. Patient complains of thick toenails as well as calluses he can't care for himself. Patient has no complaints of open wound or drainage. Patient seen by STACIE Mancera on 06/25/24. 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 Patient complains of thick toenails with return of calluses he can't care for himself. Patient has no complaints of open wound or drainage. Patient seen by STACIE Mancera on 06/25/24. 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 Patient complains of thick toenails with return of calluses he can't care for himself. Patient has no complaints of open wound or drainage. Patient seen by Adryan Stapleton MD on 11/16/24. Megan Stark DPM [address] [place], [phone], [facility] 12/07/2024 09:09:29
--- NOTE | 2024-12-21 08:44 | MHC.OFFVIS ---
Intake Visit Reasons: 1y/PSA Intake Note: Patient is present for 1 yr follow up /psa PSA 12/08/24: 0.32 Urology Medication:celecoxib Antibiotic Allergy:none Blood Thinner:none Cot Assembler Required: No Accompanied by: Self / Same As Patient Allergies No Known Allergies Allergy (Verified 12/21/24 08:45) HPI Comments Details: Anna is a pleasant male. He is a patient of Dr. Ames. He is seen for the following urologic conditions - prostate cancer - erectile dysfunction Twelve month follow-up Stable PSA PSA 12/14 0.3, 12/15 0.3 Discussed antigravity exercises Prostate cancer: Initial therapy external beam radiation 2009 short-term hormones low-grade cancer Prostate cancer was diagnosed 2008. The [facility] grade is February 2009 Gl 3+3 08/04 cores PSA 4.1. Volume 78 cc TNM Classification of Malignant Tumours (TNM) T1c. Initial therapy included 2009 , External beam radiation with short term hormonal ablation Recent labs included a PSA (prostate-specific antigen) December 2014 0.9, Jan 2016 0.4, August 2016 0.5, Mar 2017 0.45 18 .4, 18 .4, 12/09 0.5, 06/10 0.4, 12/10 0.4, 06/11 0.4, 06/12 0.6. 06/13 0.4, 12/13 0.5, 06/14 0.4 Current symptoms include none - diagnosed with mild rectal proctitis at colonoscopy - 2017 - 2017. Imaging - 08/14 prostatomegaly with marker seeds, question of lucent lesion right iliac - 01/11 bone scan with generalized degenerative changes - 12/14 bone scan generalized degenerative changes Follow in 12 months Erectile dysfunction: No longer using Tri Mix He presents today for for continued evaluation and management of erectile dysfunction. Symptoms have been present for/since years ago. Procedure(s)/Diagnosis causing dysfunction include radiation therapy. Current treament includes 04/08 Penile injection Tri-mix. Treatment side effects include none. Prior therapies include oral medications - ineffective. At this time he experiences erections are partial and insufficient for vaginal penetration, ANJEL 8-11 Moderate ED. Nocturnal erections do not occur. Currently they are in a stable relationship. [facility] Medical History HTN (hypertension) Hyperlipidemia Diabetes mellitus, type II Erectile dysfunction Prostate cancer Surgical History History of surgery Review of Systems Const Denies chills and Denies fever(s) Card Reports no additional complaints and Denies syncope Resp Denies cough GI Denies abdominal pain and Denies heartburn Reports as per HPI and Denies change in libido Neuro Denies syncope Psych Denies change in libido Endo Denies change in libido Physical Exam Const General: cooperative, healthy appearing, comfortable and no acute distress Orientation/consciousness: patient oriented x3 HEENT Face and sinus: Yes normal facial exam Mouth: moist mucous membranes Neck Neck: Yes normal visual inspection, Yes full ROM and Yes trachea midline Chest Chest palpation & inspection: normal inspection of the chest Resp Effort & Inspection: normal respiratory effort, able to speak in complete sentences and no respiratory distress GI Inspection: Yes normal to inspection Back/Spine/Pelvis Cervical Spine: normal cervical lordosis Thoracic/Lumbar Spine: thoracic and lumbar spine normal to inspection Skin General skin exam: no rashes or lesions noted Neuro General: patient oriented x3, gait normal, tone normal and moves all extremities Extrem General: Yes normal to inspection and Yes capillary refill normal Assessment & Plan Assessment & Plan (1) Prostate cancer: Code(s): C61 - Malignant neoplasm of prostate Category: Medical (2) Erectile dysfunction due to arterial insufficiency: Code(s): N52.01 - Erectile dysfunction due to arterial insufficiency Category: Medical Plan PSA 12 month Orders: Orders Prostate Specific Antigen 12 Months C61 - Malignant neoplasm of prostate Patient Instructions: This note is constructed using voice recognition software. While every effort has been made to ensure accuracy former hand errors may have been included. Imaging studies, laboratory and physical exam results were discussed and reviewed in detail. No major barriers to patient understanding were identified. An opportunity to ask questions regarding the treatment plan was provided. All questions were answered. The patient expressed understanding and agreement with the above treatment plan. The patient is aware they should contact our office by phone for worsening of their current condition or the appearance of new urologic symptoms. Compliance is encouraged with any medications and followup testing that is ordered. It is a privilege to participate in the urologic care of your patient. If you have any questions or concerns regarding treatment for the above conditions, or other urologic issues, please do not hesitate to contact me. The office telephone contact is [phone]. Sincerely, Dr Rudy Mo MD, [facility] - Urology Compassionate Specialist Care for the Genitourinary System Coding Level of Care Code Est Pt Level 4 (51077) Complex EM visit Add On G2211 Diagnoses Prostate cancer C61 Erectile dysfunction due to arterial insufficiency N52.01
== END 2024-12-21 09:19 | disposition home or self-care (01) ==
LOC: HO.HUSH 08:31
PROVIDERS: PCP Internal Medicine; Visit Provider Urology
DX: C61 Malignant neoplasm of prostate (principal); N52.01 Erectile dysfunction due to arterial insufficiency; Z13.9 Encounter for screening, unspecified
CPT/HCPCS: 99214; G2211

== ENCOUNTER → 2024-12-21 08:30 | Outpatient (BNVA) | payer MEDICARE, OTHER, SELFPAY | PROVIDERS: PCP Internal Medicine; Visit Provider Urology | DX: C61 Malignant neoplasm of prostate (principal); N52.01 Erectile dysfunction due to arterial insufficiency; Z92.3 Personal history of irradiation; Z79.899 Other long term (current) drug therapy; Z13.9 Encounter for screening, unspecified | CPT/HCPCS: 81003; 99212 ==